=== PATIENT | female | born 1945 | race Caucasian/White ===

== ENCOUNTER 2021-03-23 09:21 | Inpatient (IN) ==
[2021-03-23] MEDS ORDERED: Isovue-370 500 ML BOTTLE IVP ONE (09:25)
[2021-03-23] MEDS ORDERED: 0.9 % Sodium Chloride 1,000 ML IVC ONE (09:25)
[2021-03-23] MEDS ORDERED: Famotidine 20 MG/2 ML VIAL IVP ONE (10:02)
[2021-03-23 10:04] LABS: BUN/Creatinine Ratio 24 (6-26); Basophils # 0.1 K/mcL (0.0-0.2); Basophils % 0.5 %; Blood Urea Nitrogen 20 mg/dL (8-23); Calcium 8.8 mg/dL (8.6-10.3); Carbon Dioxide 14 mEq/L (23-29); Chloride 94 mEq/L (98-107); Eosinophils # 0.2 K/mcL (0.0-0.6); Eosinophils % 1.1 %; Glucose 217 mg/dL (70-105); Hematocrit 22.6 % (35.3-44.9); Immature Granulocytes % 4.1 % (0-4); Lymphocytes % 25.8 %; Mean Corpuscular HGB Conc 33.6 g/dL (31.6-35.5); Mean Corpuscular Hemoglobin 31.1 pg (28.0-33.3); Mean Corpuscular Volume 92.6 fL (83.0-100.0); Mean Platelet Volume 11.8 fL (9.4-12.4); Monocytes # 0.8 K/mcL (0.0-1.3); Monocytes % 5.2 %; Neutrophils # 9.9 K/mcL (1.6-8.9); Osmolality,Calculated 269 (280-300); Platelet Count 221 K/mcL (140-400); Potassium 5.3 mEq/L (3.5-5.1); Red Blood Count 2.44 M/mcL (3.82-4.97); Red Cell Distribution Width 16.5 % (11.5-14.5); Segmented Neutrophils % 63.3 %; Sodium 125 mEq/L (136-145); White Blood Count 15.7 K/mcL (4.3-11.1); eGFR For African Americans > 60 (> 60); eGFR For Non-African Americans > 60 (> 60)
[2021-03-23] MEDS ORDERED: Ondansetron 4 MG/2 ML VIAL IVP STA (10:05)
[2021-03-23 10:06] LABS: Hemoglobin 7.6 g/dL (11.5-15.4)
[2021-03-23] MEDS ORDERED: 0.9 % Sodium Chloride 500 ML ONE ×2 (10:06→14:06)
[2021-03-23 10:15] LABS: INR 1.4; Prothrombin Time 15.9 Seconds (9.4-12.1)
[2021-03-23 10:17] LABS: Activated Partial Thrombo Time 29.5 Seconds (26.0-36.0)
[2021-03-23 10:50] LABS: Troponin I 0.04 ng/mL (< 0.04)
[2021-03-23] MEDS ORDERED: *HR* FentaNYL (PF) 100 MCG/2 ML VIAL IVP ONE (11:49)
[2021-03-23] MEDS ORDERED: Naloxone 0.4 MG/ML INJ IVP PRN (12:22)
[2021-03-23] MEDS ORDERED: Ondansetron 4 MG/2 ML VIAL IVP PRN ×3 (12:22→17:21)
[2021-03-23] MEDS ORDERED: 0.9 % Sodium Chloride 1,000 ML IVC SCH (12:30)
[2021-03-23] MEDS ORDERED: Albuterol 2.5 MG/3 ML NEBULIZER IH PRN (12:45)
[2021-03-23] MEDS ORDERED: *HR* FentaNYL (PF) 100 MCG/2 ML VIAL IVP PRN (12:46)
[2021-03-23] MEDS ORDERED: *HR* EPINEPHrine 1 MG/10 ML SYRINGE INTRATRACH PRN (12:54)
[2021-03-23] MEDS ORDERED: cefTRIAXone 1,000 MG in 0.9 % Sodium Chloride Mini Bag 100 ML IVPB SCH ×2 (13:00→19:00)
[2021-03-23 13:14] LABS: ABG Base Excess -20 mEq/L (-2 to 3); ABG Chloride 100 mEq/L (98-107); ABG Glucose 136 mg/dL (60-95); ABG HCO3 9 mEq/L (21-27); ABG Ionized Calcium 1.11 mmol/L (1.15-1.35); ABG Oxygen Saturation 100 % (95-98); ABG PCO2 34 mmHg (35-45); ABG PH 7.03 pH Units (7.32-7.45); ABG PO2 530 mmHg (85-104); ABG TCO2 10 mEq/L (20-26)
[2021-03-23] MEDS ORDERED: Insulin Regular, Human 100 UNIT/ML IV ONE (13:40)
[2021-03-23] MEDS ORDERED: Sodium Bicarbonate 50 MEQ/50 ML VIAL ONE (13:46)
[2021-03-23] MEDS ORDERED: *HR* Dextrose 50 % in Water (Syg) 50 ML SYRINGE ONE (13:46)
[2021-03-23 14:37] LABS: Hematocrit 22.4 % (35.3-44.9); Hemoglobin 6.9 g/dL (11.5-15.4)
[2021-03-23 15:10] LABS: BUN/Creatinine Ratio 31 (6-26); Blood Urea Nitrogen 11 mg/dL (8-23); Calcium 7.1 mg/dL (8.6-10.3); Carbon Dioxide 6 mEq/L (23-29); Chloride 103 mEq/L (98-107); Glucose 87 mg/dL (70-105); Osmolality,Calculated 271 (280-300); Potassium 4.8 mEq/L (3.5-5.1); Sodium 131 mEq/L (136-145); Troponin I 0.07 ng/mL (< 0.04); eGFR For African Americans > 60 (> 60); eGFR For Non-African Americans > 60 (> 60)
[2021-03-23] MEDS: Sodium Bicarbonate 150 MEQ in D5% in Water 1,000 ML IVC SCH ×2 (16:33→23:18)
[2021-03-23] MEDS: Pantoprazole 40 MG in 0.9 % Sodium Chloride Mini Bag 100 ML IVC SCH ×2 (17:26→22:24)
[2021-03-23] MEDS: Octreotide 400 MCG in 0.9 % Sodium Chloride 100 ML IVC SCH (17:30)
[2021-03-23] MEDS: *HR* FentaNYL (PF) 100 MCG/2 ML VIAL IVP PRN ×2 (17:53→20:24)
[2021-03-23] MEDS ORDERED: 0.9 % Sodium Chloride 250 ML IVC SCH (19:00)
[2021-03-23 19:49] LABS: Hematocrit 23.2 % (35.3-44.9); Hemoglobin 7.3 g/dL (11.5-15.4); Immature Platelets 9.8 % (1.1-6.1); Mean Corpuscular HGB Conc 31.5 g/dL (31.6-35.5); Mean Corpuscular Volume 95.5 fL (83.0-100.0); Mean Platelet Volume 11.6 fL (9.4-12.4); Nucleated Red Blood Cells 0.2 /100 WBC (0); Platelet Count 131 K/mcL (140-400); Red Blood Count 2.43 M/mcL (3.82-4.97); Red Cell Distribution Width 16.3 % (11.5-14.5); White Blood Count 23.6 K/mcL (4.3-11.1)
[2021-03-23 19:51] LABS: Bacteria,Urine Few per hpf (None-Few); Bilirubin,Urine Negative (Negative); Blood,Urine Negative (Negative); Clarity,Urine Clear (Clear); Color,Urine Light-Yellow (Yellow); Glucose,Urine (UA) 50 mg/dL (Normal); Ketones,Urine 10 mg/dL (Negative); Leukocyte Esterase,Urine Moderate (Negative); Mucus,Urine Few per lpf (None-Few); Nitrite,Urine Negative (Negative); Protein,Urine Trace mg/dL (Neg-Trace); Specific Gravity,Urine 1.025 (1.010-1.025); Squamous Epithelial Cell,Urine Few per hpf (None-Few); Urobilinogen,Urine Normal (Normal); WBC,Urine 15-30 per hpf (0-3)
[2021-03-23 20:02] LABS: Lymphocytes # 3.8 K/mcL (0.6-4.6); Monocytes # 0.9 K/mcL (0.0-1.3); Neutrophils # 18.4 K/mcL (1.6-8.9)
[2021-03-23] MEDS ORDERED: haloperidoL 1 MG TABLET PO PRN (20:17)
[2021-03-23] MEDS ORDERED: polyethylene glycoL 3350 17 GM POWD.PACK PO PRN (20:17)
[2021-03-23] MEDS ORDERED: *HR* LORazepam 2 MG/ML VIAL IVP PRN (20:17)
[2021-03-23] MEDS ORDERED: Scopolamine Patch 1.5 MG PATCH.TD72 TD SCH (20:30)
[2021-03-23] MEDS: Morphine Sulfate 2 MG/ML SYRINGE IVP PRN (22:11)
[2021-03-24] MEDS: Morphine Sulfate 2 MG/ML SYRINGE IVP PRN ×2 (03:03→09:25)
[2021-03-24] MEDS: Pantoprazole 40 MG in 0.9 % Sodium Chloride Mini Bag 100 ML IVC SCH (04:14)
[2021-03-24] MEDS: Sodium Bicarbonate 150 MEQ in D5% in Water 1,000 ML IVC SCH (06:14)
[2021-03-24] MEDS: Octreotide 400 MCG in 0.9 % Sodium Chloride 100 ML IVC SCH (06:42)
[2021-03-24 06:54] VITALS: BP 109/35; PULSE 96; TEMP 97.1; O2SAT 99
[2021-03-24] MEDS: *HR* FentaNYL (PF) 100 MCG/2 ML VIAL IVP PRN (08:15)
[2021-03-24] MEDS ORDERED: Saliva Stimulant 44.3ml BOTTLE PO PRN (10:37)
[2021-03-24] MEDS ORDERED: Lacri-Lube 3.5 GM TUBE BOTH EYES SCH (10:45)
== END 2021-03-24 16:17 | disposition expired | DRG 377 ==
LOC: 3BNU 09:21 → 2NNU 09:21 → EMEROOARM 09:21 → 2NNU 12:28 → 2ANU 03-24 15:42
PROVIDERS: ADMIT General Practice; ATTEND General Practice